=== PATIENT | female | born 1970 | race Two or more races ===

== ENCOUNTER 2021-04-30 16:16 | Emergency (ER) | payer OTHER, SELFPAY ==
--- NOTE | ~2021-04-30 | XR_ITS ---
EXAMINATION: PORTABLE CHEST 1 VIEW CLINICAL INFORMATION: SOB . COMPARISON: No recent pertinent prior studies are available for comparison. TECHNIQUE: Portable frontal view of the chest was obtained. FINDINGS: The lungs are well expanded. No focal infiltrate, effusion, edema, or pneumothorax. Cardiac and mediastinal silhouettes are within normal limits for technique. No acute bony abnormality seen. XR/XR chest 1V IMPRESSION: No evidence of acute disease.
[2021-04-30 19:44] VITALS: BP 120/72; PULSE 107; RESP 16; TEMP 37.4; O2SAT 97; BMI 26.6
[2021-04-30 20:52] LABS: COVID-19 Test Negative (Negative)
--- NOTE | 2021-04-30 21:16 | ED_ITS ---
HPI - URI/Sore Throat General Chief Complaint: Upper Respiratory Symptoms Stated Complaint: flu like, covid neg yesterday Time Seen by Provider: 04/30/21 21:01 Source: patient Mode of arrival: ambulatory Limitations: no limitations History of Present Illness HPI Narrative: 51-year-old female who presents emergency department for evaluation of fever, sore throat, headache, body aches, shortness of breath, dyspnea on exertion, fatigue, nausea, no vomiting, no diarrhea. The patient states that she has been sick for approximately 3 days. She has had fever as high as 102.7 at home. She has been taking ibuprofen 400 mg every 4 hours as needed for fever and pain and she states this stopped working. She states that she has a diffuse, [id number] headache with photophobia. She denies stiff neck. She states she has an intermittent sore throat. She states that her whole body aches. She states that she feels short of breath at rest and has dyspnea on exertion. She has a cough which is productive of clear phlegm. She states she is fatigued. The patient was vaccinated with the COVID-19 Pfizer vaccine with her 2nd dose being in November of 2020. Related Data Previous Rx's Medication Instructions Recorded azithromycin 250 mg tablet See Rx Instructions .ROUTE 04/30/21 (Zithromax Z-Pelon) .COMPLEX #6 tab benzonatate 200 mg capsule 200 mg PO TID PRN #15 cap 04/30/21 ondansetron 4 mg disintegrating 4 mg PO Q6-8H PRN #14 tab 04/30/21 tablet Allergies Allergy/AdvReac Type Severity Reaction Status Date / Time No Known Allergies Allergy Verified 04/30/21 18:40 Review of Systems Review of Systems: Yes all other systems are reviewed and are negative [facility] Past Medical History [facility] Narrative: Past medical history: None. Past surgical history: 20 years prior. Social history: She denies tobacco use. She occasionally drinks alcohol but has had no alcohol to drink in 6-8 months. She denies drug use. Social History Social History Advance Directives: No Advance Directives Information Provided: No Physical Exam Vital Signs: Vital Signs: Last Vital Signs Temp 99.3 F 04/30/21 19:44 Pulse 107 H 04/30/21 19:44 Resp 16 04/30/21 19:44 BP 120/72 04/30/21 19:44 Pulse Ox 97 04/30/21 19:44 Body Mass Index 26.6 Const: Other: Very pleasant and cooperative female patient, she has an occasional, nonproductive in sound and cough, she does not appear to be in distress, she answers all questions appropriately. HENMT: Head: Yes normal to inspection, Yes normocephalic and Yes atraumatic Ears: external ears normal General nose exam: Normal external nose present Face and sinus: Yes normal facial exam Mouth: Normal oral and palatal mucosa present Throat: Yes posterior oropharynx normal Eyes: General: appearance normal, both eyes and all related structures Pupils: Equal, round and reactive pupils present Neck: Neck: Yes normal visual inspection, Yes no lymphadenopathy, Yes trachea midline and Yes supple Chest: Chest palpation & inspection: normal inspection of the chest and normal palpation of entire chest wall Resp: Effort & Inspection: normal respiratory effort and able to speak in complete sentences Auscultation: clear to auscultation bilaterally Cardio: Rate: regular rate Rhythm: regular rhythm Heart sounds: S1 normal heart sound present, S2 normal heart sound present and no murmurs GI: Inspection: Yes normal to inspection Palpation (GI): Soft to palpation, nontender and no guarding Auscultation: normal bowel sounds : General: Yes no CVA tenderness Back/Spine/Pelvis: Back: no CVA tenderness Skin: General skin exam: no rashes or lesions noted Neuro: Cranial nerves: Yes CN's II-XII intact bilaterally and Yes Equal, round and reactive pupils present Cognition (Neuro): normal cognition Motor exam (neuro): 5/5 motor strength present throughout Extrem: General: Yes normal to inspection Psych: Appearance: grossly normal Speech and movement: Normal speech and movement present Affect: normal affect Attitude: cooperative Thought process: Normal thought process present Thought content: Normal thought content present Course Course Course Narrative: 51-year-old female who presents emergency department for evaluation of upper respiratory/flu like illness x3 days. Vital signs revealed a slightly elevated pulse of 107 otherwise was unremarkable with a temperature of 99.3? and an O2 saturation of 97% on room air. The patient's lung exam was clear in the rest for examination was unremarkable. Chest x-ray revealed no evidence of pneumonia. COVID-19 test was negative. Patient's presentation is consistent with a flu-like viral illness I did discuss this with her. The patient will be treated symptomatically with ibuprofen and Tylenol, Zofran for nausea, Tessalon Perles for cough. At this time I do not think that she has an antibiotic but I did give her prescription for Zithromax that she can take in 3- 4 days if she is not better. The patient was given verbal and printed instructions prior to discharge. The patient was advised to follow-up with her PCP in 2 days and to return to the emergency department if her symptoms get worse or if she develops any new symptoms that are concerning to her. MDM - URI/Sore Throat Lab Data Labs: Lab Results 04/30/21 Range/Units 16:10 COVID-19 ([facility]) Negative (Negative) COVID-19 Clin Com See Note Discharge Plan Discharge Clinical Impression: Upper respiratory infection, Acute viral syndrome Patient Disposition: Home, Self-Care Instructions: Viral Syndrome (ED) Additional Instructions: Take ibuprofen 200 mg pills, 3 pills every 6 hours as needed for pain. Take Tylenol (acetaminophen) 500 mg pills, 2 pills every 4 to 6 hours as needed for pain. Take Zofran ODT 4 mg pills, 1 pill dissolved in your mouth every 8 hours as needed for nausea and vomiting. Take Tessalon Perles 200 mg pills, 1 pill every 6 hours as needed for cough. At this time, I suspect that you have a virus causing her symptoms. I am prescribing an antibiotic called Zithromax. If you are not better in 3-4 days then take this prescription medication. Follow-up with your doctor in 2 days. Please return to the emergency department if your symptoms get worse or if you develop any symptoms that are concerning to you. Prescriptions: New azithromycin [Zithromax Z-Pelon] 250 mg tablet See Rx Instructions .ROUTE .COMPLEX Qty: 6 RF: 0 ondansetron 4 mg tablet,disintegrating 4 mg PO Q6-8H PRN (Reason: nausea and vomiting) Qty: 14 RF: 0 benzonatate 200 mg capsule 200 mg PO TID PRN (Reason: cough) Qty: 15 RF: 0 Interventions: ED Discharge Assessment Last Done: 04/30/21 21:29 Discharge Date/Time: 04/30/21 21:29
[2021-04-30] MEDS: Acetaminophen 325 MG TABLET 975 MG PO (21:21)
[2021-04-30] MEDS: Benzonatate 100 MG CAPSULE 200 MG PO (21:21)
[2021-04-30] MEDS: Ondansetron ODT 4 MG TAB.RAPDIS TRANSLINGU (21:22)
== END 2021-04-30 21:29 | disposition home or self-care (01) ==
PROVIDERS: Emergency Provider Emergency Medicine Emergency Medical Services
DX: B34.9 Viral infection, unspecified (principal); R50.9 Fever, unspecified; R51.9 Headache, unspecified; M79.10 Myalgia, unspecified site; R06.02 Shortness of breath; Z20.822 Contact with and (suspected) exposure to COVID-19; Z79.899 Other long term (current) drug therapy
CPT/HCPCS: 36415; 71045; 87635; 99283; 99284

== ENCOUNTER 2023-08-07 07:20 | Emergency (ER) | payer OTHER, SELFPAY ==
--- OUTSIDE RECORDS SUMMARY | 2023-08-07 07:46 | XMS_ITS | Continuity of Care Document ---
Author Name Unknown Organization [facility] Address [address] [place] [id number]- Care Team Providers Care Tent Worker Name Role Phone Dallin Pulido MD Primary Care Physician Encounter [facility] [place] Date(s): 06/23/23 - 06/24/[address] [address]- Encounter Diagnosis Migraine(Final) - 06/23/23 Discharge Disposition: A-D/C Home Attending Physician: Erick Ponce MD Admitting Physician: Erick Ponce MD Referring Physician: Not on Staff, Referring MD Allergies, Adverse Reactions, Alerts No Known Allergies Medications prochlorperazine 10 mg oral tablet 1 tablet = 10 mg, By Mouth, 2 times a day, PRN Pain , Severe, # 10 tablet, 0 Refills, Maintenance, 06/23/23 23:50:00 EST, Tablet, [id number], Partial fill upon patient request if the prescription is for a schedule II opioid drug. Start Date: 06/23/23 Status: Ordered Problem List Condition Confirmation Course Effective Dates Status [facility] Healthy adult Confirmed Active Results Radiology Reports * Exam Date Time Procedure Performing Provider Status 06/23/23 9:[address] Angio Neck Huey Waller; Auth (Saul ified) Notes: (CT Angio Neck) Reason For Exam: Aneurysm, neck vessel(s);Other: RESULT: CT Angio Neck CT Angio Head, CT Angio Neck Hx of Present Illness: pt c o one month of sinus pain, congestion, L ear pain and sore throat. Pt coming from urgent now-sent in for high blood pressure and possible stroke per pt. Pt reports her L arm feels different, slight numbness. Denies change in gait, vision,; Reason: Other:; Neuro deficit, acute, stroke suspected; Clinical Question(s): Other:; Hematoma Aneurysm; Order Comment: / Other: TECHNIQUE: CT angiogram of the head and neck was performed after bolus administration of intravenous contrast. 100 mL of Omnipaque 300 was administered intravenously. A delayed venous phase acquisition of the head was also performed. Coronal and sagittal MIP reformatted images were obtained. Additional 3-D images were created on a separate workstation under concurrent supervision by the attendingradiologist. All stenoses are measured using NASCET criteria. Weight-based protocol using automatictube modulation was used to optimize exposure parameters. RADIATION DOSE PARAMETERS: CTDIvol Body: 10.82 mGy, DLP Body: 780 mGy*cm. CTDIvol Head: 45.90 mGy, DLP Head: 772 mGy*cm. COMPARISON: Noncontrast CT head performed concurrently. FINDINGS: CTA OF THE NECK: Arch: There is a three vessel aortic arch. The origins of superior aortic branches are largely obscured by streak artifact. There is better visualization of the left subclavian artery. Right carotid system: Minimal soft plaque is present at the origin of the internal carotid artery without stenosis. Left carotid system: The common carotid and cervical internal carotid arteries are patent. No stenosis (0%) by NASCET criteria. There is no dissection or aneurysm. There is a co-dominant vertebral artery system. Right vertebral: No significant stenosis. No evidence of dissection or aneurysm. Left vertebral: No significant stenosis. No evidence of dissection or aneurysm. Other: Soft tissues and bones: No evidence of lymphadenopathy or mass. CTA OF THE HEAD: Anterior circulation: Bilateral intracranial ICAs and their MJ and MCA branches are patent. There is no significant stenosis, proximal cutoff, aneurysm, or vascular malformation. Posterior circulation: Bilateral intracranial vertebral arteries, the basilar artery, and bilateralsuperior cerebellar and posterior cerebral branches are patent. There is no significant stenosis, proximal cutoff, aneurysm, or vascular malformation. Veins: Major dural venous sinuses are patent. Other: Soft tissues and bones: No midline shift or effacement of the basal cisterns. No space-occupying hemorrhage. No territorial loss of santana-white matter differentiation. IMPRESSION: No evidence of occlusion or significant stenosis involving the arteries of the head or neck. No evidence of dural sinus thrombosis or stenosis. A similar preliminary report was provided by [facility]. WSN: [id number] Ordering Physician: Erick Ponce Dictated By: Arben Diaz MD Dictated Date/Time: 06/24/23 9:42 am Reviewed By: Arben Diaz MD Signed By: Arben Diaz MD Signed Date/Time: 06/24/23 9:42 am Transcribed By: EDWARD Transcribed Date/Time: 06/24/23 9:35 am * Exam Date Time Procedure Performing Provider Status 06/23/23 9:[address] Angio Head Huey Waller; Auth (Saul ified) Notes: (CT Angio Head) Reason For Exam: Neuro deficit, acute, stroke suspected;Other: RESULT: CT Angio Head CT Angio Head, CT Angio Neck Hx of Present Illness: pt c o one month of sinus pain, congestion, L ear pain and sore throat. Pt coming from urgent now-sent in for high blood pressure and possible stroke per pt. Pt reports her L arm feels different, slight numbness. Denies change in gait, vision,; Reason: Other:; Neuro deficit, acute, stroke suspected; Clinical Question(s): Other:; Hematoma Aneurysm; Order Comment: / Other: TECHNIQUE: CT angiogram of the head and neck was performed after bolus administration of intravenous contrast. 100 mL of Omnipaque 300 was administered intravenously. A delayed venous phase acquisition of the head was also performed. Coronal and sagittal MIP reformatted images were obtained. Additional 3-D images were created on a separate workstation under concurrent supervision by the attendingradiologist. All stenoses are measured using NASCET criteria. Weight-based protocol using automatictube modulation was used to optimize exposure parameters. RADIATION DOSE PARAMETERS: CTDIvol Body: 10.82 mGy, DLP Body: 780 mGy*cm. CTDIvol Head: 45.90 mGy, DLP Head: 772 mGy*cm. COMPARISON: Noncontrast CT head performed concurrently. FINDINGS: CTA OF THE NECK: Arch: There is a three vessel aortic arch. The origins of superior aortic branches are largely obscured by streak artifact. There is better visualization of the left subclavian artery. Right carotid system: Minimal soft plaque is present at the origin of the internal carotid artery without stenosis. Left carotid system: The common carotid and cervical internal carotid arteries are patent. No stenosis (0%) by NASCET criteria. There is no dissection or aneurysm. There is a co-dominant vertebral artery system. Right vertebral: No significant stenosis. No evidence of dissection or aneurysm. Left vertebral: No significant stenosis. No evidence of dissection or aneurysm. Other: Soft tissues and bones: No evidence of lymphadenopathy or mass. CTA OF THE HEAD: Anterior circulation: Bilateral intracranial ICAs and their MJ and MCA branches are patent. There is no significant stenosis, proximal cutoff, aneurysm, or vascular malformation. Posterior circulation: Bilateral intracranial vertebral arteries, the basilar artery, and bilateralsuperior cerebellar and posterior cerebral branches are patent. There is no significant stenosis, proximal cutoff, aneurysm, or vascular malformation. Veins: Major dural venous sinuses are patent. Other: Soft tissues and bones: No midline shift or effacement of the basal cisterns. No space-occupying hemorrhage. No territorial loss of santana-white matter differentiation. IMPRESSION: No evidence of occlusion or significant stenosis involving the arteries of the head or neck. No evidence of dural sinus thrombosis or stenosis. A similar preliminary report was provided by [facility]. WSN: [id number] Ordering Physician: Erick Ponce Dictated By: Arben Diaz MD Dictated Date/Time: 06/24/23 9:42 am Reviewed By: Arben Diaz MD Signed By: Arben Diaz MD Signed Date/Time: 06/24/23 9:42 am Transcribed By: EDWARD Transcribed Date/Time: 06/24/23 9:35 am * Exam Date Time Procedure Performing Provider Status 06/23/23 9:[address] Head/Brain W/O Contrast Sridhar , Log an; Auth (Verified) Notes: (CT Head/Brain W/O Contrast) Reason For Exam: Neuro deficit, acute, stroke suspected;Other: RESULT: CT Head/Brain W/O Contrast CT Head/Brain W/O Contrast INDICATION: Hx of Present Illness: pt c o one month of sinus pain, congestion, L ear pain and sore throat. Pt coming from urgent now-sent in for high blood pressure and possible stroke per pt. Pt reports her L arm feels different, slight numbness. Denies change in gait, vision,; Reason: Other:; Neuro deficit, acute, stroke suspected; Clinical Question(s): Other:; Hematoma Infarction TECHNIQUE: Noncontrast head CT using axial technique and reconstructed in axial and coronal planes.Iterative reconstruction techniques are used to optimize dose and image quality. CTDIvol Head: 45.90 mGy, DLP Head: 772 mGy*cm. COMPARISON: None. FINDINGS: Supplier Quality Manager view findings, lines and tubes: None. BRAIN AND EXTRA-AXIAL SPACES: No parenchymal hemorrhage, midline shift, or mass effect. Santana-white matter differentiation is wellpreserved. No acute infarct. Ventricles, sulci, and basilar cisterns are normal. No white matter lesions. No subarachnoid hemorrhage. No subdural or epidural collection. CALVARIUM, SKULL BASE, AND SOFT TISSUES: No fractures or suspicious bony lesions. The paranasal sinuses and mastoid air cells are clear. Visualized orbits and globes are intact. The extracranial soft tissues are unremarkable. IMPRESSION: No acute intracranial pathology. WSN: [id number] Ordering Physician: Erick Ponce Dictated By: Daniel Husain MD Dictated Date/Time: 06/23/23 9:46 pm Reviewed By: Daniel Husain MD Signed By: Daniel Husain MD Signed Date/Time: 06/23/23 9:46 pm Transcribed By: EDWARD Transcribed Date/Time: 06/23/23 9:44 pm Vital Signs Most recent to oldest [Reference Range]: 1 2 3 Oxygen Saturation [94-100 %] 98 % (06/23/23 11:17 PM) 100 % (06/23/23 7:37 PM) 100 % (06/23/23 4:18 PM) Pulse Rate [55-90 bpm] 80 bpm (06/23/23 11:17 PM) 57 bpm (06/23/23 7:37 PM) 67 bpm (06/23/23 4:18 PM) Blood Pressure [90-138/55-84 mm Hg] 154/97mm Hg *H* (06/23/23 11:17 PM) 172/93mm Hg *H* (06/23/23 7:37 PM) 159/106mm Hg *H* (06/23/23 5:44 PM) Respiratory Rate [16-30 br/min] 16 br/min (06/23/23 11:17 PM) 17 br/min (06/23/23 7:37 PM) 18 br/min (06/23/23 4:16 PM) Temperature [96.8-100.4 DegF] 98.2 DegF (06/23/23 11:17 PM) 98.2 DegF (06/23/23 7:37 PM) 98.1 DegF (06/23/23 4:21 PM) Mode of Delivery (Oxygen) Room air (06/23/23 11:17 PM) Room air (06/23/23 7:37 PM) Room air (06/23/23 4:18 PM) Blood pressure sites Arm, right (06/23/23 11:17 PM) Arm, left (06/23/23 7:37 PM) Arm, left (06/23/23 5:44 PM) Temperature Route Oral (06/23/23 11:17 PM) Oral (06/23/23 7:37 PM) Oral (06/23/23 4:21 PM) Social History Social History Type Response Smoking Status Never smoker entered on: 11/14/14 Sex EKG study * Event Display: EKG Authored Date: * Event Display: ECG 12-Lead Authored Date: Please click on pdf link to open report * Event Display: ECG 12-Lead Authored Date: [id number] Ventricular Rate: 64 BPM Atrial Rate: 64 BPM P-R Interval: 160 ms QRS Duration: 82 ms Q-T Interval: 392 ms QTC Calculation(Bazett): 404 ms P [place]: 55 degrees R [place]: -5 degrees T [place]: 16 degrees Normal sinus rhythm Normal ECG When compared with ECG of 12-OCT-2008 00:27, No significant change was found Confirmed by CRISTIAN CHILDS MD ([id number]) on 06/24/2023 12:52:27 PM [place]: CRISTIAN CHILDS MD Patient Care team information Care Team Personnel Name: Dallin Pulido MD Position: [facility] Physician - Primary Care Member Role: PCP Address: Address: [address] [place] [id number]- [place] Name: Erick Ponce MD Position: [facility] ED Medicine MD Member Role: ED Attending Physician Address: Address: [address] [place] [address]- [place] Name: Monica Alonso MD Position: [facility] Resident Member Role: ED Resident Address: Address: [address] [place] [address] [place] [address]- [place] Name: Marv Swann RN Position: S ED RN W/OE and Tasks Member Role: Patient Care Provider Care Team Related Persons Name: MARTÍNEZ CORNELIUS Address: home [address] [place] [address]
--- OUTSIDE RECORDS SUMMARY | 2023-08-07 07:46 | XMS_ITS | Continuity of Care Document ---
Author Name Unknown Organization [facility] Address [address] [place] [address]- Care Team Providers Care Stallion Manager Name Role Phone Ro , Dallin Bermudez Primary Care Physician Encounter [facility] Date(s): 11/20/20 - 01/27/21 [facility] [address] [address] Attending Physician: Not on Staff, Attending MD Allergies, Adverse Reactions, Alerts Substance Reaction Severity Status NKA Active Problem List Condition Effective Dates Status Health Status Inform ant Healthy adult(Confirmed) Active Social History Social History Type Response Smoking Status Never smoker entered on: 11/14/14 Sex
--- OUTSIDE RECORDS SUMMARY | 2023-08-07 07:47 | XMS_ITS | Continuity of Care Document ---
Author Name Unknown Organization [facility] Address [address] [place] [address]- Care Team Providers Care Coal Hauler Operator Name Role Phone Ro , Dallin Bermudez Primary Care Physician [phone] Encounter [facility] Date(s): 12/28/20 - 01/27/[address] [address] Attending Physician: Admtr, [id number] Allergies, Adverse Reactions, Alerts Substance Reaction Severity Status NKA Active Problem List Condition Effective Dates Status Health Status Inform ant Healthy adult(Confirmed) Active Social History Social History Type Response Smoking Status Never smoker entered on: 11/14/14 Sex
--- OUTSIDE RECORDS SUMMARY | 2023-08-07 07:47 | XMS_ITS | Continuity of Care Document ---
Author Name Unknown Organization [facility] Address [address] [place] [address]- Care Team Providers Care Water Resources Program Director Name Role Phone Ro , Dallin Bermudez Primary Care Physician [phone] Encounter [facility] Date(s): 04/29/21 - 06/18/21 [facility] [address] [address]- Attending Physician: Not on Staff, Attending MD Allergies, Adverse Reactions, Alerts Substance Reaction Severity Status NKA Active Problem List Condition Effective Dates Status Health Status Inform ant Healthy adult(Confirmed) Active Social History Social History Type Response Smoking Status Never smoker entered on: 11/14/14 Sex
--- OUTSIDE RECORDS SUMMARY | 2023-08-07 07:47 | XMS_ITS | Continuity of Care Document ---
Author Name Unknown Organization [facility] Address [address] [place] [address]- Care Team Providers Care Robotic Welder Name Role Phone Ro , Dallin Bermudez Primary Care Physician [phone] Encounter [facility] Date(s): 04/23/21 - 05/29/21 [facility] [address] [address]- Attending Physician: Judy Mack CNM Admitting Physician: Judy Mack CNM Allergies, Adverse Reactions, Alerts Substance Reaction Severity Status NKA Active Problem List Condition Effective Dates Status Health Status Inform ant Healthy adult(Confirmed) Active Social History Social History Type Response Smoking Status Never smoker entered on: 11/14/14 Sex
--- OUTSIDE RECORDS SUMMARY | 2023-08-07 07:47 | XMS_ITS | Continuity of Care Document ---
Author Name Unknown Organization [facility] Address [address] [place] [address]- Care Team Providers Care Black Top Spreader Machine Operator Name Role Phone Ro , Dallin Bermudez Primary Care Physician [place] [facility]19[place] - 06/18/[address] [address]- Attending Physician: Admtr, [id number] Allergies, Adverse Reactions, Alerts Substance Reaction Severity Status NKA Active Problem List Condition Effective Dates Status Health Status Inform ant Healthy adult(Confirmed) Active Social History Social History Type Response Smoking Status Never smoker entered on: 11/14/14 Sex
[2023-08-07 07:48] VITALS: BP 188/117; PULSE 88; RESP 16; TEMP 36.6; O2SAT 98; BMI 29.2
[2023-08-07 07:52] VITALS: BP 205/119
[2023-08-07 08:30] VITALS: BP 211/113; PULSE 62; RESP 16
--- NOTE | 2023-08-07 08:41 | ECG_ITS ---
Test Reason : HEADACHE/HBP Blood Pressure : / mmHG Vent. Rate : 063 BPM Atrial Rate : 063 BPM P-R Int : 160 ms QRS Dur : 072 ms QT Int : 396 ms P-R-T Axes : 059 -07 024 degrees QTc Int : 405 ms Normal sinus rhythm Normal ECG No previous ECGs available Referred By: Je Gallardo Electronically Signed By:DENISA HAMILTON
--- NOTE | 2023-08-07 08:42 | ED_ITS ---
HPI - General Adult General Chief complaint: Headache Stated complaint: HBP/Headache Time Seen by Provider: 08/07/23 08:30 History of Present Illness HPI narrative: The patient is a 53-year-old woman who says that she has not felt well for about 3 or 4 days. She has had what she describes as some sinus pressure, headaches, sore throat, and left ear pain. For the hospital here. This morning she came to work and told 1 of the nurses that she had been feeling very well. They checked her blood pressure. Her blood pressure was elevated. She was advised to come to the emergency room. The patient says that when she last saw her primary care doctor about a month ago she had a headache and she was also noted to be hypertensive. She was thought to have sinusitis at that time. She was prescribed antibiotics and advised to avoid [id number]-[id number] remedies including ibuprofen in case these were contributing to her high blood pressure readings. The patient says that she is not on any medication for hypertension. The patient says that her headache is not the worst headache of her life. She says that she had migraines when she was younger that were much worse. Related Data Previous Rx's Medication Instructions Recorded azithromycin 250 mg tablet See Rx Instructions PO .COMPLEX #6 04/30/21 (Zithromax Z-Pelon) tabs benzonatate 200 mg capsule 200 mg PO TID PRN cough #15 caps 04/30/21 ondansetron 4 mg disintegrating 4 mg PO Q6-8H PRN nausea and 04/30/21 tablet vomiting #14 tabs lisinopril 10 mg tablet 10 mg PO DAILY #30 tabs 08/07/23 Allergies Allergy/AdvReac Type Severity Reaction Status Date / Time No Known Allergies Allergy Verified 04/30/21 18:40 Review of Systems 2 Review of Systems: Yes all other systems are reviewed and are negative Physical Exam ED Vital Signs: Vital Signs - 24 hr 08/07/23 07:48 08/07/23 07:52 08/07/23 08:30 Temperature 98 F Pulse Rate 88 62 Respiratory Rate 16 16 Blood Pressure 188/117 H 205/119 H 211/113 H Pulse Oximetry 98 Oxygen Delivery Method Room Air 08/07/23 09:05 08/07/23 12:30 08/07/23 14:01 Temperature Pulse Rate 62 58 65 Respiratory Rate 16 16 16 Blood Pressure 186/109 H 167/86 H 154/92 H Pulse Oximetry 99 98 Oxygen Delivery Method Room Air Room Air BMI result Body Mass Index 29.2 Const Other: The patient is awake and alert. The patient looks well and does not seem in acute distress. HENMT Other: Face is symmetrical. Mucous membranes moist. Pharynx unremarkable. Tympanic membranes are normal bilaterally. The head neck exam is unremarkable. Eyes Other: Pupils are round equal and reactive to light, extraocular movements are intact, conjunctivae are clear Neck Other: No cervical adenopathy. The neck is entirely supple. She touches her chin to her chest very easily without difficulty or discomfort. Resp Other: Lungs are clear bilaterally. No increased work of breathing. Cardio Other: The patient has a regular rate and rhythm with no murmur. Skin Other: The skin is dry and unremarkable. No lesions or rash. No diaphoresis. Neuro Other: The patient is awake, alert, pleasant, cooperative. She looks well. Her demeanor is nontoxic. Mental status is entirely normal. Cranial nerves 2-12 are intact. She moves all 4 extremities normally and has a normal gait. She is neurologically intact. Extrem Other: No peripheral edema. Medications Administered Discontinued Medications Generic Name Dose Route Start Last Admin Trade Name Freq PRN Reason Stop Dose Admin Diphenhydramine HCl 25 mg 08/07/23 08:43 08/07/23 09:38 Diphenhydramine Hcl 50 Mg/Ml Vial IVPUSH 08/07/23 08:44 25 mg ONCE ONE Administration Sodium Chloride 1,000 mls @ 999 mls/hr 08/07/23 08:45 08/07/23 10:40 Ns IV 08/07/23 09:45 Infused .Q1H1M ASYA Infusion Ketorolac Tromethamine 15 mg 08/07/23 08:43 08/07/23 09:35 Ketorolac Tromethamine 15 Mg/Ml Vial IVPUSH 08/07/23 08:44 15 mg ONCE ONE Administration Metoclopramide HCl 10 mg 08/07/23 08:43 08/07/23 09:39 Metoclopramide Hcl 10 Mg/2 Ml Vial IVPUSH 08/07/23 08:44 10 mg ONCE ONE Administration Medical Decision Making Medical Decision Making MDM Narrative: The patient is a 53-year-old woman who was referred to the emergency room after 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 She told a nursing colleagues that she was not feeling well and had a headache. Her blood pressure was checked and she was referred to the emergency room. Patient's initial blood pressures were high but her history is not suggestive of an acute process such as a subarachnoid hemorrhage or other acutely dangerous process of concern. Her symptoms suggest a much more benign process. She describes feeling unwell with a variety of constitutional symptoms over the last few days. Her physical exam is reassuring. This is not the worst headache of her life. She has no nuchal rigidity at all. Her neck is extremely supple. The patient was treated for possible migraine phenomenon. She felt much better. Her blood pressure was better. I do not think she needs neuroimaging or further evaluation. However given how high her blood pressure was I suspect she has some underlying hypertension and will prescribe a first-time antihypertensive. She was prescribed lisinopril 10 mg daily. She should follow up soon with her regular doctor to discuss this. Lab Data 08/07/23 09:28 08/07/23 09:28 Labs: Lab Results 08/07/23 08/07/23 Range/Units 09:26 09:28 WBC 7.3 (4.8-10.8) X10*3/uL RBC 4.69 (4.20-5.50) X10*6/uL Hgb 12.5 (12.0-16.0) g/dl Hct 38.5 (37.0-47.0) % MCV 82.1 (80.0-98.0) fL MCH 26.7 L (27.0-33.0) pg MCHC 32.5 (31.0-35.0) g/dl RDW 14.9 (11.0-16.0) % Plt Count 212 (160-400) X10*3/uL MPV 11.7 (9.4-12.3) fL Immature Gran % (Auto) 0.3 (0.0-0.4) % Neut % (Auto) 63.7 (45-73) % Lymph % (Auto) 24.6 (20-40) % Franklin % (Auto) 8.3 (2-11) % Eos % (Auto) 2.6 (0-4) % Baso % (Auto) 0.5 (0-2) % Lymph # (Auto) 1.8 (1.2-4.9) X10*3/uL Franklin # (Auto) 0.6 (0.1-1.2) X10*3/uL Eos # (Auto) 0.2 (0.0-0.4) X10*3/uL Baso # (Auto) 0.0 (0.0-0.2) X10*3/uL Abs Immat Gran (auto) 0.02 (0.00-0.03) X10*3/uL Absolute Neuts (auto) 4.7 (2.0-8.3) x10*3/uL Absolute Nucleated RBC 0.000 (0.0-0.012) X10*3/uL Nucleated RBC % (auto) 0.0 (0.0-0.2) /100WBC Sodium 140 (135-145) mmol/L Potassium 4.4 (3.3-5.1) mmol/L Chloride 106 (96-108) mmol/L Carbon Dioxide 27 (22-29) mmol/L Anion Gap 11 L (12-20) BUN 10 (9-16) mg/dL Creatinine 0.84 (0.5-1.4) mg/dL Estim Creat Clear Calc 93.5 Estimated GFR > 60 Random Glucose 107 (60-115) mg/dL Calcium 9.3 (8.4-10.2) mg/dL Total Bilirubin 0.2 (0.0-1.0) mg/dL Direct Bilirubin < 0.2 (0.0-0.5) mg/dL AST 37 H (5-31) U/L ALT 42 H (0-31) U/L Alkaline Phosphatase 107 (39-117) U/L C-Reactive Protein < 0.10 (< or = 0.50) mg/dL Total Protein 7.8 (6.5-8.0) g/dL Albumin 4.1 (3.5-5.0) g/dL Influenza Type A (PCR) NEGATIVE (Negative) Influenza Type B (PCR) NEGATIVE (Negative) RSV RNA Qual (PCR) NEGATIVE (Negative) SARS-CoV-2 RNA (RT-PCR) NEGATIVE (Negative) Independent Interpretation I performed an independent interpretation of an: EKG Interpretation: EKG at 08:59 shows normal sinus rhythm at 63 beats per minute. Does an unremarkable EKG. Discharge Plan Discharge Clinical Impression: Headache, Hypertension Patient Disposition: Home, Self-Care Additional Instructions: I think your headache today may have been some kind of a migraine headache. I think it is unlikely this is a sinus headache and I think it is unlikely that you would benefit from antibiotics. I suspect that you may have some underlying high blood pressure. I have sent a prescription for a medication called lisinopril to your pharmacy. This is a low dose of lisinopril. I think it would be reasonable for you to start taking this blood pressure medication and follow up soon with your regular doctor to see how you respond and to see if your regular doctor would recommend that you continue this medication or possibly switch her to another medication. I would recommend you take the rest of the day off from work today. Please rest and take it easy. Return to the emergency room if you feel significantly worse. Prescriptions: New lisinopril 10 mg tablet 10 mg PO DAILY Qty: 30 0RF No Action azithromycin [Zithromax Z-Pelon] 250 mg tablet See Rx Instructions .ROUTE .COMPLEX Qty: 6 0RF Rx Instructions: take 500 mg today (day 1), then 250 mg for 4 days (days 2-5) ondansetron 4 mg tablet,disintegrating 4 mg PO Q6-8H PRN (Reason: nausea and vomiting) Qty: 14 0RF benzonatate 200 mg capsule 200 mg PO TID PRN (Reason: cough) Qty: 15 0RF Referrals: Dallin Pulido MD [Primary Care Provider] - Stand Alone Forms: Work/School Release Interventions: ED Discharge Assessment Last Done: 08/07/23 14:02 Discharge Date/Time: 08/07/23 14:13
[2023-08-07 09:05] VITALS: BP 186/109; PULSE 62; RESP 16
[2023-08-07 09:34] LABS: MANUAL DIFF FLAG NO
[2023-08-07] MEDS: Ketorolac Tromethamine 15 MG/ML VIAL IVPUSH (09:35)
[2023-08-07] MEDS: 0.9 % Sodium Chloride 1,000 ML 999 ML IV (09:35)
[2023-08-07] MEDS: diphenhydrAMINE HCL 50 MG/ML VIAL 25 MG IVPUSH (09:38)
[2023-08-07] MEDS: Metoclopramide HCl 10 MG/2 ML VIAL IVPUSH (09:39)
[2023-08-07 09:41] LABS: Basophils Percent Auto 0.5 % (0-2); Eosinophils Absolute Auto 0.2 X10*3/uL (0.0-0.4); Eosinophils Percent Auto 2.6 % (0-4); Hematocrit 38.5 % (37.0-47.0); Hemoglobin 12.5 g/dl (12.0-16.0); Imm Gran Abs Auto 0.02 X10*3/uL (0.00-0.03); Imm Gran Pct Auto 0.3 % (0.0-0.4); Lymphocytes Absolute Auto 1.8 X10*3/uL (1.2-4.9); Lymphocytes Percent Auto 24.6 % (20-40); Mean Corpuscular HGB Conc 32.5 g/dl (31.0-35.0); Mean Corpuscular Hemoglobin 26.7 pg (27.0-33.0); Mean Corpuscular Volume 82.1 fL (80.0-98.0); Mean Platelet Volume 11.7 fL (9.4-12.3); Monocytes Absolute Auto 0.6 X10*3/uL (0.1-1.2); Monocytes Percent Auto 8.3 % (2-11); Neutrophils Absolute Auto 4.7 x10*3/uL (2.0-8.3); Neutrophils Percent Auto 63.7 % (45-73); Platelet Count 212 X10*3/uL (160-400); Red Blood Count 4.69 X10*6/uL (4.20-5.50); Red Cell Distribution Width 14.9 % (11.0-16.0); White Blood Count 7.3 X10*3/uL (4.8-10.8)
--- NOTE | 2023-08-07 09:43 | PC.NURSE ---
pt medicated as charted, resting quietly, remains hypertensive
[2023-08-07 10:01] LABS: Alanine Aminotransferase 42 U/L (0-31); Albumin Level 4.1 g/dL (3.5-5.0); Alkaline Phosphatase 107 U/L (39-117); Anion Gap 11 (12-20); Aspartate Amino Transferase 37 U/L (5-31); Bilirubin Direct < 0.2 mg/dL (0.0-0.5); Bilirubin Total 0.2 mg/dL (0.0-1.0); Blood Urea Nitrogen 10 mg/dL (9-16); C Reactive Protein < 0.10 mg/dL (< or = 0.50); Calcium 9.3 mg/dL (8.4-10.2); Carbon Dioxide 27 mmol/L (22-29); Chloride 106 mmol/L (96-108); Creatinine Clr Calc Pharmacy 93.5; Estimated Glomerular Filt Rate > 60; Glucose Random 107 mg/dL (60-115); Potassium 4.4 mmol/L (3.3-5.1); Sodium 140 mmol/L (135-145); Total Protein 7.8 g/dL (6.5-8.0)
[2023-08-07 10:16] LABS: Influenza A PCR NEGATIVE (Negative); Influenza B PCR NEGATIVE (Negative); Resp Syncy Virus RNA Qual PCR NEGATIVE (Negative); SARS COV2 PCR INHOUSE NEGATIVE (Negative)
--- NOTE | 2023-08-07 12:10 | PC.NURSE ---
pt resting in bed, easily arousable reports minimal headache pain, awaiting md disposition
[2023-08-07 12:30] VITALS: BP 167/86; PULSE 58; RESP 16; O2SAT 99
[2023-08-07 14:01] VITALS: BP 154/92; PULSE 65; RESP 16; O2SAT 98
== END 2023-08-07 14:13 | disposition home or self-care (01) ==
PROVIDERS: Emergency Provider Emergency Medicine; PCP Internal Medicine
DX: R51.9 Headache, unspecified (principal); I10 Essential (primary) hypertension; Z20.822 Contact with and (suspected) exposure to COVID-19; Z20.828 Contact with and (suspected) exposure to other viral communicable diseases
CPT/HCPCS: 0241U; 36415; 80048; 80076; 85025; 86140; 93005; 96361; 96374; 96375; 99284; 99285; J1200; J1885; J2765

== ENCOUNTER → 2023-08-07 08:41 | Outpatient (BNV) | payer OTHER, SELFPAY | PROVIDERS: Emergency Provider Emergency Medicine; PCP Internal Medicine; Visit Provider Internal Medicine | DX: R03.0 Elevated blood-pressure reading, without diagnosis of hypertension (principal) | CPT/HCPCS: 93010 ==